=== PATIENT | female | born 1970 | race Caucasian/White ===

== ENCOUNTER 2024-11-10 06:59 | Day surgery (SDC) | payer OTHER ==
--- NOTE | 2024-11-06 11:00 | NUR ---
PHONED PT [phone] FOR PRE ADMIT. NO ANSWER. LEFT MESSAGE TO CALL BACK
--- NOTE | 2024-11-06 11:40 | NUR ---
PT CALLED BACK AND PHONE PRE ADMIT INTERVIEW COMPLETED.
[~2024-11-10] VITALS: Ht 165.1 cm; Wt 95.0 kg
[~2024-11-10 06:59] MED LIST: HYDROCODON-ACE1 EA11 PO; LACTATED RINGER'S 1,000 ML IV SCH; MAGNESIUM100 MG PO; PENICILLIN V P500 MG PO; VITAMIN C100 MG PO; VITAMIN D310 MC4 PO
[2024-11-10] MEDS ORDERED: LIDOCAINE HCL 1% 5 ML SDV INJ ONE (07:00)
[2024-11-10] MEDS ORDERED: IBLOOD GLUCOSE TEST STRIP 1 EA TEST VI PRN (07:00)
[2024-11-10] MEDS ORDERED: CEFAZOLIN SODIUM 2 GM/20 ML SYR IV SCH (07:00)
[2024-11-10 07:20] VITALS: BP 149/76
[2024-11-10] MEDS ORDERED: LIDOCAINE HCL 2% 5 ML SDV ONE (07:26)
[2024-11-10] MEDS ORDERED: propofoL 200 MG/20 ML VIAL ONE (07:26)
[2024-11-10] MEDS ORDERED: ondansetron HCL 4 MG/2 ML VIAL ONE (07:26)
[2024-11-10] MEDS ORDERED: DEXAMETHASONE SOD PHOS 4 MG/ML VIAL ONE (07:26)
[2024-11-10] MEDS ORDERED: fentaNYL citrate 100 MCG/2 ML VIAL ONE (07:27)
[2024-11-10] MEDS ORDERED: KETOROLAC TROMETHAMINE 30 MG/ML VIAL ONE (09:30)
[2024-11-10] MEDS ORDERED: HYDROCODONE/ACETA 5/325 TAB PO PRN (09:30)
[2024-11-10] MEDS ORDERED: MIDAZOLAM HCL 2 MG/2 ML VIAL ONE (10:22)
[2024-11-10 11:00] VITALS: BP 97/73
[2024-11-10] MEDS ORDERED: HYDROCODON-ACE1 EA10 PO (11:07)
[2024-11-10] MEDS ORDERED: DICLOFENAC SODI75 MG PO (11:07)
--- NOTE | 2024-11-10 11:10 | NUR ---
1100-PT ARRIVED TO DS FROM OR VIA STRETCHER. PT NOTED TO BE AAAOX3, CONVERSING WITH STAFF, AND ANSWERING QUESTIONS APPROPRIATELY. VS TAKEN. BP NOTED TO BE LOWER AT 97/73, MAP 78. IV SITE ASSESSED, PATENT, AND INFUSING LR. LINE OPENED TO INCREASE FLUIDS FOR LOWER BP. CASINO FLOOR SUPERVISOR PRESENT IN ROOM AND AWARE OF BP. REPROT RECEIVED FROM SECURITY SCREENERMERRITT AVILEZ AND MARIZOL ARIAS. OR STAFF REPORTS 900ML LR INFUSED IN OR. SURGICAL SITE VISUALIZED TO L KNEE AND DRSG NOTED TO BE CDI. PTS FRIEND MIRZA IN ROOM UPON PTS RETURN. PT DENIES PAIN AND NAUSEA WHEN ASKED. CMS APPERS INTACT. LLE ELEVATED. BED IN LOW POSITION. CALL LIGHT WITHIN PT REACH. BILAT RAILS IN PLACE. WHEELS LOCKED. ALL QUESTIONS ANSWERED. 1110-PT PROVIDED ICE WATER, PUDDING, AND JONAH CRACKERS. HOB INCREASED TO APPROX 60 DEGREES TO FACILITATE EATING. PT CONT TO DENY PAIN OR NAUSEA. PT APPEARS IN GOOD SPIRITS AND CONVERSING WITH HER FRIEND AT BEDSIDE. PERSONAL BELONINGS WITHIN PT REACH WELL CALL LIGHT.
[2024-11-10 11:15] VITALS: BP 119/69
--- NOTE | 2024-11-10 11:15 | NUR ---
INTO PTS ROOM FOR VITALS. BP IMPROVED TO 119/69, MAP 80. 2ND BAG LR HUNG AND LR INFUSING WITHOUT ISSUES NOTED/REPORTED. PT CONT TO DENY ANY PAIN OR NAUSEA WHEN ASKED. DRSG REMAINS CDI. ICE PACK PLACED TO SURGICAL SITE. PT PROVIDED COFFEE, SUGAR, AND CREAMER. PT FRIEND REMAINS AT BEDSIDE.
[2024-11-10 11:40] VITALS: BP 141/66
--- NOTE | 2024-11-10 11:50 | NUR ---
1140-INTO PTS ROOM FOR REASSESSMENT. VS TAKEN AND WITHIN PTS BASELINE. SURGICAL SITE VISUALIZED AND DRSG REMAINS CDI. PT DENIES NAUSEA WHEN ASKED AND HAS BEEN TOLERATING PO FOOD AND FLUIDS WITHOUT ISSUES NOTED. IV SL'D. PT RECEIED TOTAL OF 450 LR IN DS. PT ASSISTED TO STANDING POSITION, DENIES PAIN, LIGHTHEADEDNESS, ECT WITH POSITION CHANGE. PT ABLE TO AMBULATE AROUND ROOM INDEPENDENTLY WITH RN SUPERVISION. PT REPORTS FEELING LIKE SHE WOULD LIKE TO DISCHARGE WHEN ABLE. VS STABLE. PAIN UNDER CONTROL. PT TOLERATES PO FOOD AND FLUIDS. PT HAS MET CRITERIA FOR DISCHARGE FOR MOD SED. 1145-IV REMOVED. TIP APPEARS INTACT. PRESSURE DRSG APPLIED W/GAUZE AND COBAN. 1150-PT SITTING ON EOB, CALL LIGHT, AND PERSONAL BELONINGS WITHIN PT REACH. BED IN LOW POSITION, WHEELS LOCKED. PT DRESSING FOR DISCHARGE HOME.
--- NOTE | 2024-11-10 12:15 | NUR ---
PT DISCHARGED FROM DS VIA WC TO PASSENGER SIDE OF FRIENDS VEHICLE.
--- NOTE | 2024-11-10 15:30 | NUR ---
1200-INTO PTS ROOM FOR REASSESSMENT AND DC EDUCATION. SURGICAL SITE OBSERVED POST AMBULATION AND NOTED TO REMAIN CDI. PT CONT TO DENY PAIN OR NAUSEA. FRIEND REMAINS IN ROOM AT PTS BEDSIDE. PT PROVIDED DR. MEJIAS AFTER HOURS PHONE NUMBER AND F/U APPT. PT ALSO GIVEN DR. MEJIAS POST OPERATIVE KNEE ARTHROSCOPY HAND OUT. DISCUSS COLD THERAPY SAFETY, ENSURING BARRIER IN PLACE SUCH HAND TOWEL, BETWEEN SKIN AND ICE PACK. DISCUSSED WOUND CARE, DRSG TO BE REMOVED ON 3RD POST OP DAY, AND TO KEEP DRESSING DRY UNTIL THEN. DISCUSSED POST OP MEDS, NORCO AND DICLOFENAC EC. PT PROVIDED EDUCATIONAL HANDOUTS ON BOTH MEDICATIONS. PT VERBALIZED UNDERSTANDING. ALL QUESTIONS ANSWERED. 1210-PTS FRIEND MIRZA LEFT TO PULL CAR AROUND FRONT. PTS ICE WATER REFILLED AND ALL PERSONAL BELONINGS GATHERED FOR PT.
[2024-11-10] MEDS ORDERED: DICLOFENAC SOD 75 MG TABEC PO SCH (21:00)
--- NOTE | 2024-11-13 07:17 | OR ---
[facility] [address] [place], [place] [address] Signed DATE OF OPERATION: 11/10/2024 SURGEON: Linda Gonzalez MD PREOPERATIVE DIAGNOSIS: Medial meniscus tear, left knee. POSTOPERATIVE DIAGNOSIS: Medial meniscus tear, left knee. PROCEDURE PERFORMED: Left knee arthroscopy with partial medial meniscectomy. PEAT SHREDDER TENDER: None. ANESTHESIA: MAC with local. BLOOD LOSS: Minimal. TOURNIQUET TIME: Zero. BRIEF HISTORY: Melanie is a 54-year-old female with progressive worsening of pain and instability in her knee. MRI was consistent with a posteromedial meniscus tear. Risks and benefits of operative treatment were discussed with her and she elected to proceed. Once consent was obtained she was taken to the operating room. The patient wished to have an awake arthroscopy with only local. When she was placed on the operating room table, right leg was flexed, abducted and externally rotated on a well-padded leg jade. The left was placed in a leg jade and the portal sites and the knee were injected with a total of 30 mL 0.2% ropivacaine with epinephrine. This was allowed to set up well. The knee was prepped and draped. The standard inferior lateral portal was made with a double portal trocar. The scope was introduced in the knee. ARTHROSCOPIC FINDINGS: The medial and lateral gutters were clear. The patella was noted to be well tracking and both the patella and the trochlea had grade 1 softening. The ACL was intact. Electronically Signed By: LINDA GONZALEZ MD 11/13/24 0717 PATIENT NAME: MELANIE BRIONES OPERATIVE REPORT DATE OF : 66 REPORT #: [id number] PHYSICIAN: LINDA GONZALEZ MD PCP: NO PRIMARY CARE PHYSICIAN REPORT IS CONFIDENTIAL AND NOT TO BE RELEASED WITHOUT AUTHORIZATION [facility] [address] [place], [place] [address] Signed Lateral compartment was intact. Medial compartment showed diffuse grade 3 changes on the femur and grade 2 changes on the tibia. There was a posterior medial meniscus tear. There were several unstable flaps on the femur. DESCRIPTION OF OPERATION: Standard inferomedial portal was made through the area of injection. The straight and curved biters were used to trim the meniscus tear back to a stable rim. The debris was evacuated. The tears were feathered out. The chondral flaps on the femur were then debrided down to stable rims. All debris was evacuated. The scope was withdrawn. The patient was awake and paying attention to the surgery throughout. The portals were then closed with 3-0 nylon. She was allergic to Toradol, so no Toradol was injected. The wounds were then dressed with Adaptic, ABD and Morgan wrap. She tolerated the procedure well. All sponge, needle, and instrument counts were correct. Linda Gonzalez MD BA/DEIRDREL /[id number] Copies: ~ Electronically Signed By: LINDA GONZALEZ MD 11/13/24 0717 PATIENT NAME: MELANIE BRIONES OPERATIVE REPORT DATE OF : 66 REPORT #: [id number] PHYSICIAN: LINDA GONZALEZ MD PCP: NO PRIMARY CARE PHYSICIAN REPORT IS CONFIDENTIAL AND NOT TO BE RELEASED WITHOUT AUTHORIZATION
== END 2024-11-10 12:15 | disposition home or self-care (01) ==
LOC: DS 06:59
PROVIDERS: ATTEND Specialist
PROC: 0SBD4ZZ Excision of Left Knee Joint, Percutaneous Endoscopic Approach (ICD-10-PCS; principal; 2024-11-10 09:35)
DX: S83.242A Other tear of medial meniscus, current injury, left knee, initial encounter (principal); E03.9 Hypothyroidism, unspecified; Z88.0 Allergy status to penicillin; Z88.8 Allergy status to other drugs, medicaments and biological substances; X58.XXXA Exposure to other specified factors, initial encounter
CPT/HCPCS: 01400; J0690; J1100; J1885; J2003; J2250; J2405; J2704; J3010; J7121